=== PATIENT | male | born 1940 | race Caucasian/White ===

== ENCOUNTER → 2020-04-08 | Outpatient (CLI) | payer MEDICARE, OTHER ==
[~2020-04-08] MED LIST: ASCO100T4 PO; ASPI81TA59 PO; BRIM5DRO EACHEYE; CYAN100016 SL; DOXY50CA PO; FOLI20CA PO; LIPITOR80 MG PO; METH2.5T PO; OMEP20CA16 PO; PROP15DR40 OP; TOLT4CAP PO; TRIA80OI TP
== END | disposition home or self-care (01) ==
LOC: LAB 12:00
PROVIDERS: ATTEND Registered Nurse
DX: Z01.818 Encounter for other preprocedural examination (principal); Z11.59 Encounter for screening for other viral diseases; K21.9 Gastro-esophageal reflux disease without esophagitis; K22.5 Diverticulum of esophagus, acquired
CPT/HCPCS: U0003-CS

== ENCOUNTER → 2020-04-12 | Day surgery (SDC) | payer MEDICARE, OTHER ==
[~2020-04-12] MED LIST changes: +IPRATRPIUM/ALBUTEROL 0.5/2.5MG 3 ML NEBU. NEB PRN; +MIDAZOLAM HCL PF 2 MG/2 ML VIAL. IV ONE; +ONDANSETRON PF 4 MG/2 ML VIAL. IV PRN; +PROPOFOL 10,000 MCG/ML (20ML) VIAL IV ONE
[2020-04-12] MEDS: IV RINGERS SOLUTION,LACTATED 1,000 ML IV SCH (09:30)
[2020-04-12 10:37] VITALS: BP 135/79
--- NOTE | 2020-04-14 14:11 | PATHOLOGY ---
[facility] Accession Number: [id number] . 01 Material submitted: . stomach - GASTRIC BX . 01 Clinical history: . EGD . 02 Diagnosis: Gastric biopsy: - Chronic gastritis, mild. (JPM:rusty; 04/14/2020) S 04/14/2020 0935 Local . 02 Comment: Sections of the gastric biopsy reveal segments of gastric antral/body transition mucosa showing congestion and mild chronic inflammation. A properly controlled immunoperoxidase stain for Helicobacter is negative for Helicobacter organisms. (JPM:rusty; 04/14/2020) . Special stain performed: Immunoperoxidase stain for Helicobacter . 02 Electronically signed: . Skip Biswas MD, Pathologist NPI- [id number] . 01 Gross description: . The specimen is received in formalin, labeled "Kory Galvan, gastric BX" and consists of 2 fragments of pink-parikh tissue measuring 0.8 x 0.2 cm and 0.4 x 0.2 cm which are entirely submitted in A1. (SDY; 04/12/2020) SYU/SYU 04/12/2020 1821 Local . 02 Pathologist provided ICD-10: K29.50 . 02 CPT . 619049, [id number] Specimen Comment: A courtesy copy of this report has been sent to [phone] Specimen Comment: [phone] Specimen Comment: Report sent to / DR ANTHONY Performed at: 01 [facility] [address] [facility] [address], [place] [id number] MD Philippe Barlow MD Phone: [phone] Performed at: 02 [facility] [address], [place] [id number] MD Skip Biswas MD Phone: [phone]
== END | disposition home or self-care (01) ==
LOC: SURG 08:45
PROVIDERS: ATTEND Emergency Medicine
DX: R13.10 Dysphagia, unspecified (principal); K57.30 Diverticulosis of large intestine without perforation or abscess without bleeding; K29.50 Unspecified chronic gastritis without bleeding; K22.2 Esophageal obstruction; K44.9 Diaphragmatic hernia without obstruction or gangrene; M19.90 Unspecified osteoarthritis, unspecified site; K21.9 Gastro-esophageal reflux disease without esophagitis; G47.33 Obstructive sleep apnea (adult) (pediatric); Z85.51 Personal history of malignant neoplasm of bladder; Z98.890 Other specified postprocedural states; Z79.82 Long term (current) use of aspirin; Z79.899 Other long term (current) drug therapy
CPT/HCPCS: 43239; 43450; J2704; J7120

== ENCOUNTER 2021-04-21 07:15 | Emergency (ER) | payer MEDICARE, OTHER ==
[~2021-04-21] VITALS: Ht 172.7 cm; Wt 90.0 kg
[~2021-04-21 07:15] MED LIST changes: -IPRATRPIUM/ALBUTEROL 0.5/2.5MG 3 ML NEBU. NEB PRN; -MIDAZOLAM HCL PF 2 MG/2 ML VIAL. IV ONE; -ONDANSETRON PF 4 MG/2 ML VIAL. IV PRN; -PROPOFOL 10,000 MCG/ML (20ML) VIAL IV ONE
[2021-04-21 07:33] VITALS: BP 163/79
[2021-04-21] MEDS ORDERED: FLUORESCEIN 1MG EYE STRIP. ONE (07:47)
[2021-04-21] MEDS ORDERED: FLUORESCEIN 1MG EYE STRIP. OU ONE (08:00)
[2021-04-21] MEDS ORDERED: CIPR5DRO EACHEYE (08:09)
--- NOTE | 2021-04-21 08:10 | PHYS DOC ---
Past History Past Surgical History: Other Additional Past Surgical Histo: THROAT SURGERY, PROSTATE SURGERY. Alcohol Use: None Adult General Chief Complaint Chief Complaint: EYE PROBLEMS HPI HPI Patient is a pleasant 80-year-old male who presents via POV for left eye problem. Reports he has chronic eye issues, states he has glaucoma but unsure what type, does admit to taking daily eyedrops and sees Dr. Mee Jimenez here locally in [place]. States he has been at baseline health without any major changes in medication, recent sick contacts or travel. Reports he woke up this morning with an irritated left eye that was red when he looked in the mirror. He has history of corneal abrasions suffered in the past from scratching his eye due to cat dander and hairs getting in his eye, he thinks this happened again. Denies any major changes in vision or pain, just constant foreign body feeling, itching and conjunctival injection without discharge Review of Systems Review of Systems Fourteen body systems of review of systems have been reviewed. See HPI for pertinent positives and negative responses, other costello all other systems are negative, non-pertinent or non-contributory Current Medications Current Medications Current Medications Medications (Trade) Dose Ordered Sig/Adam Start Time Stop Time Status Last Admin Dose Admin Fluorescein Sodium (Ful-Ailyn 1mg) 1 strip STK-MED ONCE 04/21/21 07:47 04/21/21 07:47 DC Allergies Allergies Allergies Coded Allergies Type Severity Reaction Last Updated Verified No Known Drug Allergies 04/21/21 No Physical Exam Physical Exam Constitutional: Well developed, well nourished, no acute distress, non-toxic appearance. HENT: Normocephalic, atraumatic, bilateral external ears normal, oropharynx moist, no oral exudates, nose normal. Eye exam: The patient was examined with the slit lamp. Extraocular movements are intact Pupils are equally round and reactive to light Visual acuity: 20/30 bilaterally, 20/30 left, 20/40 right Eyelids/under eyelids: normal Conjunctivae and sclera: Injected grossly on the left without any obvious bleeding Corneas: Fluorescein uptake noted at 4 o'clock position ~3mm in length without obvious dendrites, and negative Tamela sign Anterior chambers: normal without cell, flare, or hyphema Eye pressures (tonometer): left eye 16, right eye 18 Neck: Normal range of motion, no tenderness, supple, no stridor. Cardiovascular: Heart rate regular per monitor Lungs & Thorax: No respiratory distress or accessory muscle use, bilateral chest rise Abdomen: Abdomen soft, non-tender, bowel sounds present in all quadrants, no guarding or rebound, nonacute abdomen. Skin: Warm, dry, no erythema, no rash. Back: No tenderness, no CVA tenderness. Extremities: No tenderness, no cyanosis, no clubbing, ROM intact, no edema. Neurologic: Alert and oriented X 3, grossly normal motor & sensory function, no focal deficits noted. Psychologic: Affect normal, judgement normal, mood normal. Current Patient Data Vital Signs Vital Signs Date Time Temp Pulse Resp B/P (MAP) Pulse Ox O2 Delivery O2 Flow Rate FiO2 04/21/21 07:33 98.0 65 18 163/79 97 Room Air EKG EKG [] Radiology/Procedures Radiology/Procedures [] Heart Score C/O Chest Pain: No Risk Factors: Risk Factors: DM, Current or recent (<one month) smoker, HTN, HLP, family history of CAD, obesity. Risk Scores: Risk Factors: DM, Current or recent (<one month) smoker, HTN, HLP, family history of CAD, obesity. Course & Med Decision Making Course & Med Decision Making ABCs unremarkable. I disclosed entirety of ER findings and discussed most likely diagnosis of corneal abrasion. Other diagnoses were discussed with patient such as acute angle glaucoma and other ocular emergencies but all deemed less likely causes of patient's presentation. Plan of care discussed at length with need for close outpatient follow-up to review today's ER visit stressed. Strict return precautions were also discussed at length with good understanding by patient. Patient voiced understanding and agreement with the plan. Patient knows to come back for repeat evaluation if concerning signs or symptoms present prior to outpatient follow-up. Hemodynamically stable, ambulatory and well- appearing at time of disposition. Dragon Disclaimer Dragon Disclaimer This electronic medical record was generated, in whole or in part, using a voice recognition dictation system. Departure Departure: Impression: Primary Impression: Corneal abrasion, left Disposition: HOME / SELF CARE / HOMELESS Condition: STABLE Referrals: MALIKA ANTHONY MD (PCP) Patient Instructions: Eye - Corneal Abrasion Additional Instructions: You were seen for eye pain. You most likely have a corneal abrasion and was likely caused by accidental trauma to the eye. The pain should improve in the next few days. Use over the counter saline eye drops or any medications prescribed here as directed. Please follow-up with your outpatient boots and shoes supervisor as discussed. Return to the ED if you develop worsening pain, vision change, fever, or any other new or concerning symptoms. Follow up with an front end architect as needed or if continued symptoms. Scripts Ciprofloxacin Hcl (CILOXAN) 5 Ml Drops 2 DROP EACHEYE QID for corneal abrasion for 5 Days, #5 ML Prov: PAT WATT DO 04/21/21 PAT WATT DO Apr 21, 2021 08:10
[2021-04-21] MEDS ORDERED: CIPROFLOXACIN 0.3% OPHTH SOLUTION 2.5ML BOTTLE. ONE (08:14)
[2021-04-21] MEDS ORDERED: CIPROFLOXACIN 0.3% OPHTH SOLUTION 2.5ML BOTTLE. OS ONE (08:15)
== END 2021-04-21 08:17 | disposition home or self-care (01) ==
LOC: ER 07:15
DX: S05.02XA Injury of conjunctiva and corneal abrasion without foreign body, left eye, initial encounter (principal); X58.XXXA Exposure to other specified factors, initial encounter; Y93.89 Activity, other specified; Y92.89 Other specified places as the place of occurrence of the external cause; Y99.8 Other external cause status
CPT/HCPCS: 99283